=== PATIENT | male | born 1990 | race Caucasian/White ===

== ENCOUNTER 2025-05-16 19:17 | Emergency (ER) | payer BC, OTHER ==
[2025-05-16 19:29] VITALS: RESP 18; TEMP 98.6
--- NOTE | 2025-05-16 19:43 | ED ---
Headache HPI - General Chief Complaint: Headache Stated Complaint: Numbness Left Side,tingling,Facial Droop Time Seen by Provider: 05/16/25 19:30 Source: RN notes reviewed, old records reviewed Mode of arrival: ambulatory Limitations: no limitations - History of Present Illness Initial Comments: This is a 34-year-old male presenting with concern for stroke he does admit to headache for 3 days. Today patient is unable to move the left side of his face with numbness and tingling. Unable to close his left eye some drooling noted patient symptoms all began while at work today MD Complaint: headache, other (Left-sided facial numbness) -: days(s) Onset Description: sudden Location: left Severity: moderate Severity scale (1-10): 7 Consistency: constant Improves With: nothing Worsens With: none Associated Symptoms: other (0) Other Symptoms: other (0) Treatments Prior to Arrival: other (0) - Related Data Home Medications Medication Instructions Recorded Confirmed Miconazole 2% Cream [Monistat-Derm] 1 applicate TOPICAL DAILY PRN 09/08/14 09/08/14 Previous Rx's Medication Instructions Recorded Cephalexin [Keflex] 500 mg PO Q6HR #28 cap 09/08/14 Clotrimazole Cream [Lotrimin Cream] 1 applic TOPICAL BID 10 Days 09/08/14 applic predniSONE [Deltasone] 80 mg PO DAILY #28 tab 05/16/25 valACYclovir HCL [Valacyclovir] 1,000 mg PO TID #21 tab 05/16/25 Allergies Allergy/AdvReac Type Severity Reaction Status Date / Time amoxicillin [Amoxicillin] Allergy Swelling Verified 05/16/25 19:28 Review of Systems ROS Statement: Those systems with pertinent positive or pertinent negative responses have been documented in the HPI. ROS Other: All systems not noted in ROS Statement are negative. Past Medical History Additional Past Medical History / Comment(s): hearing impaired History of Any Multi-Drug Resistant Organisms: None Reported Past Surgical History: No Surgical Hx Reported Past Psychological History: ADD/ADHD Smoking Status: Former smoker Past Alcohol Use History: Occasional Past Drug Use History: None Reported General Exam Limitations: no limitations General appearance: alert, in no apparent distress Head exam: Present: atraumatic, normocephalic, normal inspection Eye exam: Present: normal appearance, PERRL, EOMI. Absent: scleral icterus, conjunctival injection, periorbital swelling ENT exam: Present: normal exam, mucous membranes moist Neck exam: Present: normal inspection. Absent: tenderness, meningismus, lymphadenopathy Respiratory exam: Present: normal lung sounds bilaterally. Absent: respiratory distress, wheezes, rales, rhonchi, stridor Cardiovascular Exam: Present: regular rate, normal rhythm, normal heart sounds. Absent: systolic murmur, diastolic murmur, rubs, gallop, clicks GI/Abdominal exam: Present: soft, normal bowel sounds. Absent: distended, tenderness, guarding, rebound, rigid Extremities exam: Present: normal inspection, full ROM, normal capillary refill. Absent: tenderness, pedal edema, joint swelling, calf tenderness Back exam: Present: normal inspection Neurological exam: Present: alert, oriented X3, CN II-XII intact Psychiatric exam: Present: normal affect, normal mood Skin exam: Present: warm, dry, intact, normal color. Absent: rash Course Vital Signs 05/16/25 05/16/25 19:26 21:19 Temperature 98.6 F Pulse Rate 90 84 Respiratory 18 18 Rate Blood Pressure 137/86 129/79 O2 Sat by Pulse 99 96 Oximetry - Reevaluation(s) Reevaluation #1: 05/16/25 19:41 Records reviewed Reevaluation #2: 05/16/25 19:41 Patient symptoms unchanged here in the ER Reevaluation #3: 05/16/25 19:41 Patient informed of results and questions answered Reevaluation #4: Was pt. sent in by a medical professional or institution (, PA, RESPIRATORY CARE TECHNICIAN, urgent care, hospital, or [place] [facility] facility...) When possible be specific @ -no Did you speak to anyone other than the patient for history (EMS, parent, family, police, friend...)? What history was obtained from this source @ -no Did you review nursing and triage notes (agree or disagree)? Why? @ -agree Are old charts reviewed (outside hosp., previous admission, EMS record, old EKG, old radiological studies, urgent care reports/EKG's, [place] [facility] facility records)? Report findings @ -yes Differential Diagnosis (chest pain, altered mental status, abdominal pain women, abdominal pain men, vaginal bleeding, weakness, fever, dyspnea, syncope, head ache, dizziness, GI bleed, back pain, seizure, CVA, palpatations, mental health, musculoskeletal)? @ -prior EKG interpreted by me (3pts min.). @ -no X-rays interpreted by me (1pt min.). @ -no CT interpreted by me (1pt min.). @ -yes negative for acute disease U/S interpreted by me (1pt. min.). @ -no What testing was considered but not performed or refused? (CT, X-rays, U/S, labs)? Why? @ -none What meds were considered but not given or refused? Why? @ -none Did you discuss the management of the patient with other professionals (professionals i.e. Dr., PA, RESPIRATORY CARE TECHNICIAN, lab, RT, psych nurse, criminal justice social worker, screwhead stoner and polisher, teacher, environmental officer, case finisher)? Give summary @ -no Was smoking cessation discussed for >3mins.? @ -no Was critical care preformed (if so, how long)? @ -no Were there social determinants of health that impacted care today? How? (Homelessness, low income, unemployed, alcoholism, drug addiction, transportation, low edu. Level, literacy, decrease access to med. care, shelter, rehab)? @ -none Was there de-escalation of care discussed even if they declined (Discuss DNR or withdrawal of care, Hospice)? DNR status @ -no What co-morbidities impacted this encounter? (DM, HTN, Smoking, COPD, CAD, Cancer, CVA, ARF, Chemo, Hep., AIDS, mental health diagnosis, sleep apnea, morbid obesity)? @ -none Was patient admitted / discharged? Hospital course, mention meds given and rou te, prescriptions, significant lab abnormalities, going to OR and other pertinent info. @ - 34 male to ER with signs and symptoms of Wagner's palsy patient stated he did have a severe headache earlier in the week we did get a CT scan negative patient treated for Wagner's palsy and can be discharged home Discharge Undiagnosed new problem with uncertain prognosis? @ -no Drug Therapy requiring intensive monitoring for toxicity (Heparin, Nitro, Insulin, Cardizem)? @ -no Were any procedures done? @ -no Diagnosis/symptom? @ -Wagner's palsy Acute, or Chronic, or Acute on Chronic? @ -Acute Uncomplicated (without systemic symptoms) or Complicated (systemic symptoms)? @ -Complicated Side effects of treatment? @ -no Exacerbation, Progression, or Severe Exacerbation? @ -exacerbation Poses a threat to life or bodily function? How? (Chest pain, USA, PA, pneumonia, PE, COPD, DKA, ARF, appy, cholecystitis, CVA, Diverticulitis, Homicidal, Suicidal, threat to staff... and all critical care pts) @ -no Reevaluation #5: Differential Headache: Migraine, tension, cluster, carbon monoxide, central venous thrombosis, pension karma temporal arteritis, acute closure glaucoma, intercranial hemorrhage, mastoiditis, sinusitis, head injury, this is not meant to be an all-inclusive list. Differential CVA Ischemic stroke, hemorrhagic stroke, brain tumor, atypical migraine, Wernicke's encephalopathy, seizure, multiple sclerosis, meningitis, encephalitis, hypoglycemia, Guillain-Coreas, electrolytes disturbance, myasthenia gravis.... This is not meant to be an all-inclusive list Medical Decision Making - Medical Decision Making 34 male to ER with signs and symptoms of Wagner's palsy patient stated he did have a severe headache earlier in the week we did get a CT scan negative patient treated for Wagner's palsy and can be discharged home - Radiology Data Radiology results: report reviewed (CT brain negative for acute disease), image reviewed Disposition Clinical Impression: Headache, Wagner's palsy Disposition: HOME SELF-CARE Condition: Good Instructions (If sedation given, give patient instructions): Wagner Palsy (ED) Prescriptions: predniSONE [Deltasone] 80 mg PO DAILY #28 tab valACYclovir HCL [Valacyclovir] 1,000 mg PO TID #21 tab Is patient prescribed a controlled substance at d/c from ED?: No Referrals: Mauricio Kim MD [Primary Care Provider] - 1-2 days Time of Disposition: 20:30
[2025-05-16] MEDS: DEXAMETHASONE SOD PHOSPHATE 10 MG/ML 1 ML VIAL IM STA (20:08)
[2025-05-16] MEDS: valACYclovir HCL 1,000 MG TABLET PO STA (20:08)
--- NOTE | 2025-05-16 20:50 | CT ---
EXAMINATION TYPE: CT brain wo con DATE OF EXAM: 05/16/2025 8:35 PM COMPARISON: None. CLINICAL INDICATION: Male, 34 years old with history of mendez, Headache TECHNIQUE: Brain: Axial CT images of the brain were obtained with coronal and sagittal reformats created and rev iewed. Contrast used: None. Oral contrast used: None. CT DLP: 1164.5 mGycm, Automated exposure control for dose reduction was used. FINDINGS: Brain: Extra-axial spaces: No abnormal extra-axial fluid collections. Ventricular system: Within normal limits Cerebral parenchyma: No acute intraparenchymal hemorrhage or mass effect. The lr-white junction is well differentiated. Cerebellum: Unremarkable. Mass effect: No evidence of midline shift. Intracranial vasculature: unremarkable Soft tissues: Normal. Calvarium/osseous structures: No depressed skull fracture. Paranasal sinuses and mastoid air cells: Mucosal thickening involving the left maxillary sinus with a ir-fluid level and near complete opacification. Additional mucosal thickening visualized throughout t he left ethmoid air cells and left sphenoid sinus. Left sphenoethmoidal recess is nearly completely o pacified. Visualized orbits: Orbital contents are intact. IMPRESSION: 1. No acute intracranial process. 2. Paranasal sinus disease as above with likely acute on chronic etiology. [facility], , 05/16/2025 8:48 PM
[2025-05-16 21:21] VITALS: BP 129/79; PULSE 84
== END 2025-05-16 21:21 | disposition home or self-care (01) ==
LOC: EC 19:17
DX: R51.9 Headache, unspecified (principal); G51.0 Bell's palsy; Z87.891 Personal history of nicotine dependence; Z88.0 Allergy status to penicillin
CPT/HCPCS: 99284; 96372; 70450; J1100